=== PATIENT | male | born 1980 | race African-American/Black ===

== ENCOUNTER 2018-02-27 04:44 | Emergency (ER) | payer SELFPAY ==
[2018-02-27 04:53] VITALS: BP 111/72; PULSE 119; TEMP 98.6; BMI 32.5
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
[2018-02-27] MEDS ORDERED: CEPHALEXIN MONOHYDRATE 500 MG CAPSULE (UD) PO ONE (05:37)
[2018-02-27] MEDS ORDERED: CEPHALEXIN MONOHYDRATE 500 MG CAPSULE (UD) ONE (05:38)
== END 2018-02-27 05:47 | disposition home or self-care (01) ==
LOC: FER 04:44
PROC: 0HQ1XZZ Repair Face Skin, External Approach (ICD-10-PCS; principal; 2018-02-27)
DX: S01.81XA Laceration without foreign body of other part of head, initial encounter (principal); Y00.XXXA Assault by blunt object, initial encounter; Y92.9 Unspecified place or not applicable; Y93.9 Activity, unspecified; J45.909 Unspecified asthma, uncomplicated; Z87.891 Personal history of nicotine dependence
CPT/HCPCS: 99281-25

== ENCOUNTER 2018-03-10 23:00 | Emergency (ER) | payer OTHER ==
[2018-03-10 23:04] VITALS: BP 125/80; PULSE 80; TEMP 98; BMI 25.8
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
== END 2018-03-10 23:22 | disposition home or self-care (01) ==
LOC: FER 23:00
DX: Z48.02 Encounter for removal of sutures (principal)
CPT/HCPCS: 99281-25